=== PATIENT | female | born 1995 | race Caucasian/White ===

== ENCOUNTER 2017-01-01 14:52 | Emergency (ER) | payer BC ==
[~2017-01-01] VITALS: Ht 154.9 cm; Wt 39.0 kg
[2017-01-01 14:55] VITALS: BP 129/87; PULSE 99; RESP 14; TEMP 98.8; O2SAT 98
--- NOTE | 2017-01-01 15:16 | PD ---
HPI Chief Complaint: Injury Time Seen by Provider: 15:16 Travel History International Travel<30 days: No Contact w/Intl Traveler<30days: No Traveled to known affect area: No History of Present Illness HPI 17-year-old female presents to the emergency Department with complaint of right ankle pain after thinking she stepped down a last step and it wasn't the last step and she rolled her ankle. She did fall to the floor and denies hitting her head or loss of consciousness. Denies neck pain or back pain. Denies other extremity pain. Pain is to the lateral and medial aspect of the ankle. She is using crutches for support. She has applied ice to the ankle. She has not taken any medications PFSH Past Medical History Respiratory: Yes ?: Not Social History Tobacco Use: No Allergies-Medications (Allergen,Severity, Reaction): Coded Allergies: No Known Allergies (Unverified , 01/01/17) Review of Systems Except as stated in HPI: all other systems reviewed are Neg Physical Exam Narrative GENERAL: Well-nourished, well-developed patient, in no acute distress SKIN: Warm and dry. HEAD: Atraumatic. Normocephalic. EYES: Pupils equal and round. No scleral icterus. No injection or drainage. ENT: Mucosa pink and moist. Airway patent. NECK: Trachea midline. CARDIOVASCULAR: Regular rate. RESPIRATORY: No accessory muscle use. GASTROINTESTINAL: Flat. MUSCULOSKELETAL: Right ankle with point tenderness and mild edema to the lateral malleolar and medial malleolar zone with palpation; no obvious deformity ; without erythema, ecchymosis. Right lower extremity supple and nontender to 2 + pedal pulses and sensory intact No obvious deformities. No clubbing. No cyanosis. No edema. NEUROLOGICAL: Awake and alert. Oriented 3. No obvious cranial nerve deficits. Motor grossly within normal limits. Normal speech. PSYCHIATRIC: Appropriate mood and affect; insight and judgment normal. Data Data Last Documented VS Vital Signs Date Time Temp Pulse Resp B/P Pulse Ox O2 Delivery O2 Flow Rate FiO2 01/01/17 14:55 98.8 99 14 129/87 98 Orders Ankle, Complete ([id number]) (01/01/17 15:16) Ibuprofen (Motrin) (01/01/17 15:30) MDM Medical Decision Making Medical Screen Exam Complete: Yes Emergency Medical Condition: Yes Medical Record Reviewed: Yes Differential Diagnosis Ankle sprain, ankle fracture, ankle dislocation Narrative Course 21-year-old female with right ankle injury. Ibuprofen ordered administered in the ER. Right ankle x-ray ordered. 1603: Right ankle x-ray with no acute findings. Patient has crutches for support. Mario bandage and ankle stirrup plaster splint applied for support. Ibuprofen prescribed for home. Patient verbalizes understanding and agreement with treatment plan. Patient is medically cleared and stable for discharge. Discussed reasons to return to the emergency department. Instructed patient to follow up with primary care provider. Patient agrees with treatment plan. The patients vital signs are stable and the patient is stable for outpatient follow- up and treatment. Patient discharged home, stable and in no acute distress. Diagnosis Primary Impression: Right ankle sprain Qualified Code: S93.401A - Sprain of right ankle, unspecified ligament, initial encounter Referrals: Primary Care Physician Patient Instructions: Ankle Sprain (ED), Ankle Stirrup Splint (ED), Crutch Instructions (ED), General Instructions Departure Forms: Tests/Procedures, Work Release Enter return to work date: January 08, 2017 Additional Instructions: Ibuprofen or Tylenol as directed and as needed for pain and inflammation Rest, ice, compress, and elevate extremity to decrease pain and inflammation Ankle Brace for support Crutches for support Avoid aggravating activity; increase activity as tolerated Follow-up with primary care provider Return to the emergency department immediately with worsening symptoms Med/Other Pt SpecificInfo: Prescription(s) given Scripts Ibuprofen 800 Mg [id number] Mg PO Q6HR PRN (PAIN) #30 TAB Ref 0 Prov:Michelle Roberto 01/01/17 Disposition: 01 DISCHARGE HOME Condition: Stable Michelle Roberto Jan 01, 2017 15:16
[2017-01-01] MEDS ORDERED: IBUPROFEN 800 MG TAB PO ONE (15:30)
--- NOTE | 2017-01-01 15:47 | RADRPT ---
EXAM DATE/TIME: 01/01/2017 15:26 [facility] COMPARISON: No previous studies available for comparison. INDICATIONS : Right ankle pain after fall. MEDICAL HISTORY : None. SURGICAL HISTORY : None. ENCOUNTER: Initial ACUITY: 1 day PAIN SCORE: 6/10 LOCATION: Right lateral ankle. FINDINGS: Three view exam was performed of the right ankle. The bony structures are in normal alignment. No e vidence of fracture, dislocation, or soft tissue swelling. The ankle mortise is intact. No radiopaq ue foreign bodies are seen. Bony mineralization is normal. CONCLUSION: Negative exam Bashir Winkler MD on January 01, 2017 at 15:43 Board Certified Radiologist. This report was verified electronically.
[2017-01-01] MEDS ORDERED: IBUP800T23 PO (16:03)
== END 2017-01-01 16:38 | disposition home or self-care (01) ==
LOC: NEPK 14:52
DX: S93.401A Sprain of unspecified ligament of right ankle, initial encounter (principal); W10.9XXA Fall (on) (from) unspecified stairs and steps, initial encounter
CPT/HCPCS: 73610; 99283; L1906